=== PATIENT | male | born 1965 | race Caucasian/White ===

== ENCOUNTER 2019-04-24 13:26 | Emergency (ER) | payer MEDICARE, MEDICAID ==
[2019-04-24] MEDS ORDERED: Sodium Chloride 0.9% 10 ML Syringe FLUSH PRN (14:30)
[2019-04-24] MEDS ORDERED: Meclizine 25 MG Tab PO ONE (14:30)
[2019-04-24] MEDS ORDERED: Sodium Chloride 0.9% 1,000 ML IV SCH (14:30)
[2019-04-24] MEDS ORDERED: Ondansetron 4 MG/2 ML SDV IVPUSH ONE (14:33)
--- NOTE | 2019-04-24 14:36 | EDM.PDOC ---
ED HPI GENERAL MEDICAL PROBLEM - General Chief Complaint: Neurological Problem Stated Complaint: DIZZINESS, WEAK, NAUSEA Time Seen by Provider: 04/24/19 14:23 Source of Information: Reports: Patient, Family, RN Notes Reviewed History Limitations: Reports: No Limitations - History of Present Illness INITIAL COMMENTS - FREE TEXT/NARRATIVE: 54-year-old gentleman presents to the emergency department today complaint of dizziness, his last known well time was about 8:30 this morning, he has been dizzy for the last 6 hours he describes the dizziness more as up-and-down movement of his eyes rather than room spinning he does have difficulty ambulating and needs to hold on to something to to secure himself. Does have nausea and vomiting no shortness of breath or chest pain. Does have known history of epilepsy status post temporal lobectomy on the right side - Related Data Allergies Allergy/AdvReac Type Severity Reaction Status Date / Time hepatitis B virus vaccine Allergy Sweating Verified 04/24/19 13:59 Home Meds: Home Meds ALPRAZolam [Xanax] 0.5 mg PO TID PRN 04/24/19 [History] Albuterol Sulfate [Albuterol Sulfate Hfa] 2 puff INH Q6H PRN 04/24/19 [History] Alum Hydrox/Mag Hydrox/Simeth [Maalox Advanced] 30 ml PO ASDIRECTED 04/24/19 [ History] Aspirin [Ecotrin EC] 81 mg PO DAILY 04/24/19 [History] Calcium Carbonate/Vitamin D3 [Calcium Carbonate/Vitamin D 600 MG-200 Unit] 1 tab PO BID 04/24/19 [History] Chlorthalidone 50 mg PO DAILY 04/24/19 [History] Cholecalciferol (Vitamin D3) [Vitamin D3] 2,000 unit PO DAILY 04/24/19 [History] Cyanocobalamin (Vitamin B-12) [B-12] 1 tab PO DAILY 04/24/19 [History] DM/Pseudoephed/Acetaminophen [V-R Non-Aspirin Flu Gelcap] 1 tab PO BID PRN 04/24 [History] Divalproex Sodium [Depakote ER] 2 tab PO DAILY 04/24/19 [History] Divalproex Sodium [Depakote ER] 3 tab PO ACDINNER 04/24/19 [History] Finasteride 5 mg PO DAILY 04/24/19 [History] Fluticasone Propionate [Flonase] 1 - 2 spray INH DAILY 04/24/19 [History] Gabapentin [Neurontin] 3 tab PO TID 04/24/19 [History] Lacosamide [Vimpat] 1.5 tab PO Q12H 04/24/19 [History] Levothyroxine 300 mcg PO ACBREAKFAST 04/24/19 [History] Loperamide [Imodium] 2 tab PO TID PRN 04/24/19 [History] Magnesium Hydroxide [Milk of Magnesia] 30 ml PO ASDIRECTED 04/24/19 [History] Melatonin 10 mg PO BEDTIME 04/24/19 [History] Meloxicam 15 mg PO DAILY 04/24/19 [History] OXcarbazepine [Oxcarbazepine] 2 tab PO BID 04/24/19 [History] Potassium Chloride 20 meq PO TIDMEALS 04/24/19 [History] Propranolol [Inderal LA 24 Hr] 80 mg PO DAILY 04/24/19 [History] QUEtiapine [SEROquel] 0.5 - 1 tab PO BID PRN 04/24/19 [History] QUEtiapine [SEROquel] 25 mg PO BEDTIME 04/24/19 [History] Sertraline [Zoloft] 200 mg PO DAILY 04/24/19 [History] Sucralfate [Carafate] 1 tab PO BID 04/24/19 [History] Tamsulosin [Flomax] 2 tab PO DAILY 04/24/19 [History] Zolpidem Tartrate [Ambien] 0.5 - 1 tab PO BEDTIME PRN 04/24/19 [History] raNITIdine HCl [Zantac] 150 mg PO BID 04/24/19 [History] Past Medical History HEENT History: Reports: Hard of Hearing, Other (See Below) Other HEENT History: deveated septum Cardiovascular History: Reports: Hypertension Respiratory History: Reports: Asthma Gastrointestinal History: Reports: Chronic Diarrhea, Other (See Below) Other Gastrointestinal History: acid reflux Musculoskeletal History: Reports: Back Pain, Chronic, Osteoarthritis Neurological History: Reports: Seizure Psychiatric History: Reports: Anxiety, Dementia Endocrine/Metabolic History: Reports: Hypothyroidism - Past Surgical History Head Surgeries/Procedures: Reports: Other (See Below) HEENT Surgical History: Reports: None Cardiovascular Surgical History: Reports: None Respiratory Surgical History: Reports: None GI Surgical History: Reports: None Endocrine Surgical History: Reports: None Neurological Surgical History: Reports: None Musculoskeletal Surgical History: Reports: None Dermatological Surgical History: Reports: None Social & Family History - Family History Family Medical History: Noncontributory - Tobacco Use Smoking Status *Q: Former Smoker Years of Tobacco use: 10 Packs/Tins Daily: 3 Used Tobacco, but Quit: Yes Month/Year Tobacco Last Used: 12/2008 - Caffeine Use Caffeine Use: Reports: Coffee, Soda - Recreational Drug Use Recreational Drug Use: No ED ROS GENERAL - Review of Systems Review Of Systems: See Below Constitutional: Reports: No Symptoms HEENT: Reports: Vision Change (intermittent double vision) Respiratory: Reports: No Symptoms Cardiovascular: Reports: No Symptoms GI/Abdominal: Reports: No Symptoms : Reports: No Symptoms Musculoskeletal: Reports: No Symptoms Skin: Reports: No Symptoms Neurological: Reports: Dizziness ED EXAM, NEURO - Physical Exam Exam: See Below Text/Narrative:: General: male, not in any distress, alert and oriented x3 HEENT: head is atraumatic normocephalic, eyes pupils equal round reactive to light, sclera clear no conjunctivitis appreciated. Ears tympanic membranes clear and begum landmarks and light reflex are present bilaterally canals are clear. Nose no septal deviation, nares are clear, no blood present. Mouth mucosa is moist and pink no erythema or exudate noted in soft palate, tongue is midline uvula is midline, dentition is intact. Neck: Supple no thyromegaly no tracheal deviation. Nodes: Cervical nodes subclavicular nodes nontender no palpable lymphadenopathy noted. Lungs: clear to auscultation bilaterally with symmetrical respirations, no adventitious noise appreciated. CV: Regular rate and rhythm S1 and S2 appreciated no murmurs rubs or gallops noted. Abdomen: Soft, nontender, no palpable masses or organomegaly appreciated, no distention no guarding bowel sounds are present, [. Neuro: Cranial nerves II test with pupillary light reflex 5 mm to 3 mm bilaterally, CN III test pupillary constriction, lid elevation and eye abduction bilaterally, CN IV downward movement of eyes bilaterally, CN V good jaw movement, CN lateral deviation of the eyes bilaterally to finger movement , CN VII symmetrical smile shows teeth without difficulty, CN VIII pass finger rub to ears bilaterally, CN IX adequate voice and tone, CN X adequate voice and tone no difficulty swallowing, CN XI can shrug shoulders without difficulty, CN XII can stick tongue out without difficulty, cranial nerves II to XII intact as tested, Head impulse test: negative loss of fixation with corrective saccades when head turned to the bilateral Nystagmus: unidirectional, horizontal 4 beats of nystagmus Skew deviation: grossly absent Skin: Warm and dry, intact Extremities: No lower extremity edema appreciated, pedal pulse is +2. Course - Vital Signs Last Recorded V/S: Last Vital Signs Temp 98.6 F 04/24/19 13:51 Pulse 60 04/24/19 16:15 Resp 16 04/24/19 16:15 BP 123/79 04/24/19 16:15 Pulse Ox 96 04/24/19 16:15 - Orders/Labs/Meds Orders: Active Orders 24 hr Category Date Time Status EKG Documentation Completion [RC] ASDIRECTED Care 04/24/19 14:32 Active Peripheral IV Care [RC] . DIRECTED Care 04/24/19 14:31 Active Sodium Chloride 0.9% [Normal Saline] 1,000 ml Med 04/24/19 14:30 Active IV ASDIRECTED Sodium Chloride 0.9% [Saline Flush] Med 04/24/19 14:30 Active 10 ml FLUSH ASDIRECTED PRN Peripheral IV Insertion Adult [OM.PC] Urgent Oth 04/24/19 14:30 Ordered EKG 12 Lead [EK] Urgent Ther 04/24/19 14:30 Ordered Medication Orders Sodium Chloride (Normal Saline) 1,000 mls @ 500 mls/hr IV ASDIRECTED PENELOPE Last Admin: 04/24/19 14:51 Dose: 500 mls/hr Sodium Chloride (Saline Flush) 10 ml FLUSH ASDIRECTED PRN PRN Reason: Keep Vein Open Last Admin: 04/24/19 15:12 Dose: 10 ml Labs: Laboratory Tests 04/24/19 04/24/19 Range/Units 14:40 14:40 WBC 5.8 (4.5-11.0) K/uL RBC 4.41 (4.30-5.90) M/uL Hgb 14.3 (12.0-15.0) g/dL Hct 40.1 (40.0-54.0) % MCV 91 (80-98) fL MCH 32 H (27-31) pg MCHC 36 (32-36) % Plt Count 270 (150-400) K/uL Neut % (Auto) 59 (36-66) % Lymph % (Auto) 23 L (24-44) % [place] % (Auto) 14 H (2-6) % Eos % (Auto) 3 (2-4) % Baso % (Auto) 1 (0-1) % Sodium 123 L (140-148) mmol/L Potassium 3.9 (3.6-5.2) mmol/L Chloride 84 L (100-108) mmol/L Carbon Dioxide 31 (21-32) mmol/L Anion Gap 11.9 (5.0-14.0) mmol/L BUN 16 (7-18) mg/dL Creatinine 1.1 (0.8-1.3) mg/dL Est Cr Clr Drug Dosing 77.42 mL/min Estimated GFR (MDRD) > 60 (>60) Glucose 100 (74-106) mg/dL Calcium 9.1 (8.5-10.1) mg/dL Total Bilirubin 0.6 (0.2-1.0) mg/dL AST 15 (15-37) U/L ALT 22 (12-78) U/L Alkaline Phosphatase 57 (46-116) U/L Total Protein 7.6 (6.4-8.2) g/dL Albumin 4.2 (3.4-5.0) g/dL Globulin 3.4 (2.3-3.5) g/dL Albumin/Globulin Ratio 1.2 (1.2-2.2) Meds: Medications Generic Name Dose Route Start Last Admin Trade Name Freq PRN Reason Stop Dose Admin Sodium Chloride 1,000 mls @ 500 mls/hr 04/24/19 14:30 04/24/19 14:51 Normal Saline IV 500 mls/hr ASDIRECTED PENELOPE Administration Sodium Chloride 10 ml 04/24/19 14:30 04/24/19 15:12 Saline Flush FLUSH 10 ml ASDIRECTED PRN Administration Keep Vein Open Discontinued Medications Generic Name Dose Route Start Last Admin Trade Name Freq PRN Reason Stop Dose Admin Sodium Chloride 100 mls @ 0 mls/hr 04/24/19 14:45 04/24/19 15:09 Normal Saline IV 04/24/19 14:46 100 mls/hr ASDIRECTED PENELOPE Administration KVO Iopamidol 100 ml 04/24/19 14:45 04/24/19 15:09 Isovue-370 (76%) IV 04/24/19 14:46 100 ml . DIRECTED PENELOPE Administration Meclizine HCl 25 mg 04/24/19 14:30 04/24/19 14:55 Antivert PO 04/24/19 14:31 25 mg ONETIME ONE Administration Ondansetron HCl 4 mg 04/24/19 14:33 04/24/19 14:55 Zofran IVPUSH 04/24/19 14:34 4 mg ONETIME ONE Administration Sodium Chloride 10 ml 04/24/19 14:39 04/24/19 15:10 Saline Flush FLUSH 04/24/19 14:40 10 ml ONETIME ONE Administration Departure - Departure Time of Disposition: 18:11 Disposition: Home, Self-Care 01 Condition: Fair Clinical Impression: Dizziness - Discharge Information Referrals: Jessica Fuentes MD [Primary Care Provider] - Forms: ED Department Discharge Additional Instructions: use the meclizine as needed for dizzy symptoms, Please followup with your primary care provider in 3-5 days if not better, please call return to the emergency department with worsening of symptoms. - My Orders Last 24 Hours: My Active Orders 04/24/19 14:30 Sodium Chloride 0.9% [Normal Saline] 1,000 ml IV ASDIRECTED Sodium Chloride 0.9% [Saline Flush] 10 ml FLUSH ASDIRECTED PRN Peripheral IV Insertion Adult [OM.PC] Urgent EKG 12 Lead [EK] Urgent 04/24/19 14:31 Peripheral IV Care [RC] . DIRECTED 04/24/19 14:32 EKG Documentation Completion [RC] ASDIRECTED - Assessment/Plan Last 24 Hours: My Active Orders 04/24/19 14:30 Sodium Chloride 0.9% [Normal Saline] 1,000 ml IV ASDIRECTED Sodium Chloride 0.9% [Saline Flush] 10 ml FLUSH ASDIRECTED PRN Peripheral IV Insertion Adult [OM.PC] Urgent EKG 12 Lead [EK] Urgent 04/24/19 14:31 Peripheral IV Care [RC] . DIRECTED 04/24/19 14:32 EKG Documentation Completion [RC] ASDIRECTED Plan: Assessment Acuity = acute Site and laterality = dizzy with horizontal nystagmus complicating the patient with history of craniotomy and temporal lobectomy Etiology = unknown etiology Manifestations = nausea Location of injury = Home Lab values = this CBC CMP unremarkable except for sodium is low at 123 consistent hyponatremia. This is chronic Plan he had good relief with meclizine provided and Zofran plan is discharge home with meclizine 25 mg when necessary he will follow up with primary care and neurology if this persists This note was dictated using [employer] voice recognition software please call with any questions on syntax or grammar. F
[2019-04-24] MEDS ORDERED: Sodium Chloride 0.9% 10 ML Syringe FLUSH ONE (14:39)
[2019-04-24] MEDS ORDERED: Sodium Chloride 0.9% 100 ML IV SCH (14:45)
[2019-04-24] MEDS ORDERED: Iopamidol 755 Mg/ML 100 ML Bottle IV SCH (14:45)
--- NOTE | 2019-04-24 16:02 | CRLCT ---
INDICATION: Dizziness and nystagmus to the left. TECHNIQUE: CT of the head without contrast. Coronal and sagittal reformats are included. COMPARISON: None. FINDINGS: Postoperative changes of immature right frontoparietal craniotomy. 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 Thick extra-axial calcification along the right anterior frontal convexity and anterior falx is likely dural in location and postoperative in etiology. No acute intracranial hemorrhage or extra-axial collection. No evidence of acute cortical infarction. No mass effect or midline shift. Mild generalized cerebral/cerebellar parenchymal volume loss. Ventricles normal in size and contour given the degree of volume loss. Well corticated defect within the superior medial orbital roof with intracranial contiguity. 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 Paranasal sinuses are well aerated. Mastoid air cells are clear. No lytic or sclerotic osseous lesions within the calvarium or skull base. Scalp and other imaged soft tissue structures are normal. IMPRESSION: 1. No acute intracranial abnormalities, including no evidence of acute intracranial hemorrhage or cortical infarct. 2. Postoperative changes of mature right frontoparietal craniotomy. 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 3. Right anterior frontal and parafalcine dural calcification is favored to be postoperative in etiology. 4. 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 Please note that all CT scans at this facility use dose modulation, iterative reconstruction, and/or weight-based dosing when appropriate to reduce radiation dose to as low as reasonably achievable. Dictated by Brett Granda MD @ Apr 24 2019 3:51PM Signed by Dr. Brett Granda @ Apr 24 2019 4:02PM
--- NOTE | 2019-04-24 16:11 | CRLCT ---
INDICATION: Dizziness up nystagmus to the left. TECHNIQUE: CTA of the head with 100 cc of Isovue 370. Coronal and sagittal reformats and MIPS reconstructions are included. COMPARISON: None. FINDINGS: Suboptimal opacification the intracranial arteries. Accounting for this, no occlusion or significant stenosis of the proximal intracranial arterial vasculature. No stenosis or occlusion of the anterior or middle cerebral arteries. No stenosis or occlusion of the posterior cerebral arteries. There is a right posterior communicating artery. The left posterior communicating artery is not visible. No stenosis or occlusion of the intradural vertebral arteries and basilar artery, which are diminutive. This may be secondary to hypoplasia or suboptimal contrast bolus timing. No stenosis or occlusion of the intracranial internal carotid arteries. No aneurysm or vascular malformation. IMPRESSION: 1. Suboptimal opacification of the intracranial arteries. Accounting for this, no hemodynamically significant stenosis or occlusion is identified. No aneurysm or vascular malformation. Please note that all CT scans at this facility use dose modulation, iterative reconstruction, and/or weight-based dosing when appropriate to reduce radiation dose to as low as reasonably achievable. Dictated by Brett Granda MD @ Apr 24 2019 3:53PM Signed by Dr. Brett Granda @ Apr 24 2019 4:09PM
== END 2019-04-24 18:27 | disposition home or self-care (01) ==
LOC: JP.ED 13:26
DX: R42 Dizziness and giddiness (principal); I10 Essential (primary) hypertension; J45.909 Unspecified asthma, uncomplicated; F41.9 Anxiety disorder, unspecified; E03.9 Hypothyroidism, unspecified; K21.9 Gastro-esophageal reflux disease without esophagitis; M19.90 Unspecified osteoarthritis, unspecified site; Z87.891 Personal history of nicotine dependence; Z88.7 Allergy status to serum and vaccine; Z79.82 Long term (current) use of aspirin; Z79.899 Other long term (current) drug therapy
CPT/HCPCS: 36415; 70450; 70496; 80053; 85025; 93005; 96361; 96374; 99284; 99284-25; A9270-GY; J2405; J7030; Q9967

== ENCOUNTER 2020-12-13 09:29 | Emergency (ER) | payer MEDICARE ==
[2020-12-13] MEDS ORDERED: Ondansetron 4 MG/2 ML SDV IVPUSH ONE (10:33)
--- NOTE | 2020-12-13 10:37 | EDM.PDOC ---
ED HPI GENERAL MEDICAL PROBLEM - General Chief Complaint: General Stated Complaint: MEDICAL VIA [facility] Time Seen by Provider: 12/13/20 10:24 Source of Information: Reports: Patient, RN Notes Reviewed History Limitations: Reports: No Limitations - History of Present Illness INITIAL COMMENTS - FREE TEXT/NARRATIVE: 55-year-old gentleman presents emergency department via [facility] today complaint of weakness with dizziness and nausea and vomiting, he states the symptoms have gotten progressively worse today he has had intermittent bouts of dizziness in the past with some double vision however today it is significantly worse. He feels weak difficulty walking with the nausea and vomiting. - Related Data Allergies Allergy/AdvReac Type Severity Reaction Status Date / Time hepatitis B virus vaccine Allergy Sweating Verified 12/13/20 09:39 Home Meds: Home Meds ALPRAZolam [Xanax] 0.5 mg PO TID PRN 04/24/19 [History] Albuterol Sulfate [Albuterol Sulfate Hfa] 2 puff INH Q6H PRN 04/24/19 [History] Aspirin [Ecotrin EC] 81 mg PO DAILY 04/24/19 [History] Calcium Carbonate/Vitamin D3 [Calcium Carbonate/Vitamin D 600 MG-200 Unit] 1 tab PO BID 04/24/19 [History] Cyanocobalamin (Vitamin B-12) [B-12] 1 tab PO DAILY 04/24/19 [History] Divalproex Sodium [Depakote ER] 2 tab PO DAILY 04/24/19 [History] Divalproex Sodium [Depakote ER] 3 tab PO ACDINNER 04/24/19 [History] Finasteride 5 mg PO DAILY 04/24/19 [History] Fluticasone Propionate [Flonase] 1 - 2 spray INH DAILY 04/24/19 [History] Gabapentin [Neurontin] 3 tab PO TID 04/24/19 [History] Lacosamide [Vimpat] 1.5 tab PO Q12H 04/24/19 [History] Levothyroxine 300 mcg PO ACBREAKFAST 04/24/19 [History] Loperamide [Imodium] 2 tab PO TID PRN 04/24/19 [History] Magnesium Hydroxide [Milk of Magnesia] 30 ml PO ASDIRECTED 04/24/19 [History] Melatonin 10 mg PO BEDTIME 04/24/19 [History] OXcarbazepine [Oxcarbazepine] 2 tab PO BID 04/24/19 [History] Potassium Chloride 20 meq PO TIDMEALS 04/24/19 [History] Propranolol [Inderal LA 24 Hr] 80 mg PO DAILY 04/24/19 [History] QUEtiapine [SEROquel] 0.5 - 1 tab PO BID PRN 04/24/19 [History] QUEtiapine [SEROquel] 50 mg PO BEDTIME 04/24/19 [History] Sertraline [Zoloft] 200 mg PO DAILY 04/24/19 [History] Sucralfate [Carafate] 1 tab PO BID 04/24/19 [History] Zolpidem Tartrate [Ambien] 0.5 - 1 tab PO BEDTIME PRN 04/24/19 [History] Past Medical History HEENT History: Reports: Hard of Hearing, Other (See Below) Other HEENT History: deveated septum Cardiovascular History: Reports: Hypertension Respiratory History: Reports: Asthma Gastrointestinal History: Reports: Chronic Diarrhea, Other (See Below) Other Gastrointestinal History: acid reflux Musculoskeletal History: Reports: Back Pain, Chronic, Osteoarthritis Neurological History: Reports: Seizure Psychiatric History: Reports: Anxiety, Dementia Endocrine/Metabolic History: Reports: Hypothyroidism - Past Surgical History Head Surgeries/Procedures: Reports: Other (See Below) HEENT Surgical History: Reports: None Cardiovascular Surgical History: Reports: None Respiratory Surgical History: Reports: None GI Surgical History: Reports: None Endocrine Surgical History: Reports: None Neurological Surgical History: Reports: None Musculoskeletal Surgical History: Reports: None Dermatological Surgical History: Reports: None Social & Family History - Family History Family Medical History: No Pertinent Family History - Tobacco Use Tobacco Use Status *Q: Never Tobacco User - Caffeine Use Caffeine Use: Reports: Coffee, Soda - Recreational Drug Use Recreational Drug Use: No ED ROS GENERAL - Review of Systems Review Of Systems: See Below Constitutional: Reports: Weakness HEENT: Reports: Vertigo, Vision Change Respiratory: Reports: No Symptoms Cardiovascular: Reports: No Symptoms GI/Abdominal: Reports: Nausea ED EXAM, GENERAL - Physical Exam Exam: See Below Free Text/Narrative:: Head impulse test: Corrective saccades is positive when head turned to the bilateral Nystagmus: unidirectional, horizontal 3-beating nystagmus Skew deviation: grossly absent Exam Limited By: No Limitations General Appearance: Alert, WD/WN, No Apparent Distress Respiratory/Chest: No Respiratory Distress, Lungs Clear, Normal Breath Sounds, No Accessory Muscle Use, Chest Non-Tender Cardiovascular: Regular Rate, Rhythm, No Murmur GI/Abdominal: Soft, Non-Tender #1 Interpretation EKG Date: 12/13/20 Time: 16:39 Rhythm: NSR Rate (Beats/Min): 62 [place]: Normal P-Wave: Present QRS: Normal ST-T: Normal QT: Normal Comparison: NA - No Prior EKG Course - Vital Signs Last Recorded V/S: Last Vital Signs Temp 97.8 F 12/13/20 09:37 Pulse 58 L 12/13/20 17:38 Resp 16 12/13/20 09:37 BP 148/71 H 12/13/20 17:38 Pulse Ox 95 12/13/20 09:37 - Orders/Labs/Meds Orders: Active Orders 24 hr Category Date Time Status EKG Documentation Completion [RC] ASDIRECTED Care 12/13/20 16:19 Active Sodium Chloride 0.9% [Normal Saline] 1,000 ml Med 12/13/20 10:45 Active IV ASDIRECTED EKG 12 Lead [EK] Stat Ther 12/13/20 16:19 Ordered Medication Orders Sodium Chloride (Normal Saline) 1,000 mls @ 999 mls/hr IV ASDIRECTED PENELOPE Last Admin: 12/13/20 11:13 Dose: 500 mls/hr Documented by: MARY Labs: Laboratory Tests 12/13/20 12/13/20 12/13/20 Range/Units 10:44 10:44 16:20 WBC 6.4 (4.5-11.0) K/uL RBC 4.38 (4.30-5.90) M/uL Hgb 14.0 (12.0-15.0) g/dL Hct 40.9 (40.0-54.0) % MCV 93 (80-98) fL MCH 32 H (27-31) pg MCHC 34 (32-36) % Plt Count 220 (150-400) K/uL Neut % (Auto) 69.7 H (36-66) % Lymph % (Auto) 14.2 L (24-44) % [place] % (Auto) 10.9 H (2-6) % Eos % (Auto) 4.4 H (2-4) % Baso % (Auto) 0.8 (0-1) % Sodium 129 L (140-148) mmol/L Potassium 4.6 (3.6-5.2) mmol/L Chloride 89 L (100-108) mmol/L Carbon Dioxide 32 (21-32) mmol/L Anion Gap 12.6 (5.0-14.0) mmol/L BUN 58 H D (7-18) mg/dL Creatinine 2.3 H D (0.8-1.3) mg/dL Est Cr Clr Drug Dosing 36.59 mL/min Estimated GFR (MDRD) 29 L (>60) Glucose 122 H (74-106) mg/dL Calcium 9.2 (8.5-10.1) mg/dL Total Bilirubin 0.3 (0.2-1.0) mg/dL AST 56 H D (15-37) U/L ALT 116 H (12-78) U/L Alkaline Phosphatase 100 D (46-116) U/L Troponin I < 0.017 (0.000-0.056) ng/mL Total Protein 7.4 (6.4-8.2) g/dL Albumin 4.0 (3.4-5.0) g/dL Globulin 3.4 (2.3-3.5) g/dL Albumin/Globulin Ratio 1.2 (1.2-2.2) Meds: Medications Generic Name Dose Route Start Last Admin Trade Name Juanita PRN Reason Stop Dose Admin Sodium Chloride 1,000 mls @ 999 mls/hr 12/13/20 10:45 12/13/20 11:13 Normal Saline IV 500 mls/hr ASDIRECTED PENELOPE Administration Discontinued Medications Generic Name Dose Route Start Last Admin Trade Name Juanita PRN Reason Stop Dose Admin Aspirin 324 mg 12/13/20 16:19 12/13/20 16:31 Aspirin 81 Mg Tab.Chew PO 12/13/20 16:20 324 mg ONETIME ONE Administration Sodium Chloride 100 mls @ 4 mls/sec 12/13/20 11:15 Normal Saline IV 12/13/20 11:16 ASDIRECTED PENELOPE Iopamidol 100 ml 12/13/20 11:15 Iopamidol 755 Mg/Ml 100 Ml Bottle IV 12/13/20 11:16 . DIRECTED PENELOPE Lorazepam 0.5 mg 12/13/20 15:45 12/13/20 15:53 Lorazepam 0.5 Mg Tab PO 12/13/20 15:46 0.5 mg ONETIME ONE Administration Meclizine HCl 25 mg 12/13/20 13:12 12/13/20 13:30 Meclizine 25 Mg Tab PO 12/13/20 13:13 25 mg ONETIME ONE Administration Ondansetron HCl 4 mg 12/13/20 10:33 12/13/20 16:39 Ondansetron 4 Mg/2 Ml Sdv IVPUSH 12/13/20 10:34 Not Given ONETIME ONE Sodium Chloride 10 ml 12/13/20 11:03 Sodium Chloride 0.9% 10 Ml Syringe FLUSH 12/13/20 11:04 ONETIME PRN per radiology protocol Departure - Departure Time of Disposition: 18:24 Disposition: Home, Self-Care 01 Condition: Fair Clinical Impression: Dizziness - Discharge Information Instructions: Dizziness, [id number] Referrals: PCP,None [Ordering Only Provider] - Forms: ED Department Discharge Additional Instructions: Try the Ativan as needed for dizzy symptoms, please followup with your primary care provider in 3-5 days if not better, please call return to the emergency department with worsening of symptoms. Sepsis Event Note (ED) - Evaluation Sepsis Screening Result: No Definite Risk - Focused Exam Vital Signs: Vital Signs Temp Pulse Resp BP Pulse Ox 12/13/20 17:38 58 L 148/71 H 12/13/20 15:33 62 147/81 H 12/13/20 09:37 97.8 F 58 L 16 173/87 H 95 - My Orders Last 24 Hours: My Active Orders 12/13/20 10:45 Sodium Chloride 0.9% [Normal Saline] 1,000 ml IV ASDIRECTED 12/13/20 16:19 EKG Documentation Completion [RC] ASDIRECTED EKG 12 Lead [EK] Stat - Assessment/Plan Last 24 Hours: My Active Orders 12/13/20 10:45 Sodium Chloride 0.9% [Normal Saline] 1,000 ml IV ASDIRECTED 12/13/20 16:19 EKG Documentation Completion [RC] ASDIRECTED EKG 12 Lead [EK] Stat Plan: Assessment Acuity = acute Site and laterality = dizziness complicating gentleman who has had a craniotomy in the past Etiology = unknown Manifestations = none Location of injury = Home Lab values = CBC unremarkable sodium low at 129 consistent chronic hyponatremia creatinine elevated 2.3 consistent with chronic renal failure stage G4 troponin is negative CT scan of the head shows no acute process MRI of the brain shows no acute process Plan He had minimal improvement with meclizine but did have some good improvement with Ativan half a milligram prescription written for 1 mg p.o. 3 times daily as needed total #10 have him follow-up with his primary care in the next 3 to 5 days for reevaluation This note was dictated using [employer] voice recognition software please call with any questions on syntax or grammar.
[2020-12-13] MEDS ORDERED: Sodium Chloride 0.9% 1,000 ML IV SCH (10:45)
[2020-12-13] MEDS ORDERED: Sodium Chloride 0.9% 10 ML Syringe FLUSH PRN (11:03)
[2020-12-13] MEDS ORDERED: Iopamidol 755 Mg/ML 100 ML Bottle IV SCH (11:15)
[2020-12-13] MEDS ORDERED: Sodium Chloride 0.9% 100 ML IV SCH (11:15)
--- NOTE | 2020-12-13 11:58 | CT ---
Head wo Cont CLINICAL HISTORY: nystagmus COMPARISON: 2019 TECHNIQUE: Transverse scans were obtained from the base of the skull through the vertex without IV contrast on a multislice, multidetector CT scanner. Auto dosage reduction and iterative reconstruction techniques employed. FINDINGS: There is an area of encephalomalacia involving the right temporal lobe from previous craniotomy this is similar to prior study. No other focal abnormal density is identified. There is no mass effect, hemorrhage, or extraaxial collection. The basal cisterns and sulci over the convexities are mildly prominent. The ventricles are normal for age. IMPRESSION: Previous right craniotomy and temporal lobe resection Mild age-related atrophy No significant change from 2019
[2020-12-13] MEDS ORDERED: Meclizine 25 MG Tab PO ONE (13:12)
--- NOTE | 2020-12-13 15:30 | MR ---
Brain wo Cont CLINICAL HISTORY: Nystagmus COMPARISON: Current noncontrast CT brain TECHNIQUE: Multiple axial, sagittal, and coronal images were obtained on a 1.5 T magnet with multiweighted sequences, FLAIR, and diffusion imaging without contrast. FINDINGS: There is focal encephalomalacia involving the right temporal lobe similar to older studies. There has been previous right craniotomy. There is no hemmorhage or extraaxial collection. There is no restricted diffusion. There is some scattered T2 hyperintensity in the periventricular and subcortical white matter. The basal cisterns and sulci over the convexities are mildly prominent. The ventricles are normal for age. IMPRESSION: Previous right craniotomy and temporal lobe dissection. Mild age-related atrophy Scattered chronic ischemic microvascular changes
[2020-12-13] MEDS ORDERED: LORazepam 0.5 MG Tab PO ONE (15:45)
[2020-12-13] MEDS ORDERED: Aspirin 81 MG Tab.Chew PO ONE (16:19)
== END 2020-12-13 18:54 | disposition home or self-care (01) ==
LOC: JP.ED 09:29
DX: R42 Dizziness and giddiness (principal); I10 Essential (primary) hypertension; J45.909 Unspecified asthma, uncomplicated; F03.90 Unspecified dementia, unspecified severity, without behavioral disturbance, psychotic disturbance, mood disturbance, and anxiety; R56.9 Unspecified convulsions; E03.9 Hypothyroidism, unspecified; M19.90 Unspecified osteoarthritis, unspecified site; Z88.7 Allergy status to serum and vaccine; Z79.82 Long term (current) use of aspirin; Z79.899 Other long term (current) drug therapy
CPT/HCPCS: 36415; 70450; 70450-26; 70551; 70551-26; 80053; 84484; 85025; 93005; 99285-25; A9270-GY; J7030

== ENCOUNTER 2020-12-16 12:49 | Emergency (ER) | payer MEDICARE ==
--- NOTE | 2020-12-16 13:30 | EDM.PDOCBH ---
ED HPI GENERAL MEDICAL PROBLEM - General Chief Complaint: Neurological Problem Stated Complaint: MEDICAL VIA [facility] Time Seen by Provider: 12/16/20 12:55 Source of Information: Reports: Patient, EMS History Limitations: Reports: No Limitations - History of Present Illness INITIAL COMMENTS - FREE TEXT/NARRATIVE: 55-year-old male with numerous psychiatric illnesses and chronic anxiety has been having trouble with bladder spasms and urine retention and is scheduled for prostate surgery next month. He was in the last night in the emergency room with shakiness and weakness, apparently he fell and bumped his head and had a very thorough work-up. It was all reassuring. This morning he felt shaky again so called the ambulance. When he arrived he appeared very anxious but within 10 to 15 minutes he calm down and was back to his baseline. No fevers or chills, cough or shortness of breath, is very concerned about his upcoming surgery. Onset: Unknown/Unsure Associated Symptoms: Reports: Confusion, Weakness, Other (Significant anxiety) - Related Data Allergies Allergy/AdvReac Type Severity Reaction Status Date / Time hepatitis B virus vaccine Allergy Sweating Verified 12/15/20 19:52 Home Meds: Home Meds ALPRAZolam [Xanax] 0.5 mg PO TID PRN 04/24/19 [History] Albuterol Sulfate [Albuterol Sulfate Hfa] 2 puff INH Q6H PRN 04/24/19 [History] Aspirin [Ecotrin EC] 81 mg PO DAILY 04/24/19 [History] Calcium Carbonate/Vitamin D3 [Calcium Carbonate/Vitamin D 600 MG-200 Unit] 1 tab PO BID 04/24/19 [History] Cyanocobalamin (Vitamin B-12) [B-12] 1 tab PO DAILY 04/24/19 [History] Divalproex Sodium [Depakote ER] 2 tab PO DAILY 04/24/19 [History] Divalproex Sodium [Depakote ER] 3 tab PO ACDINNER 04/24/19 [History] Finasteride 5 mg PO DAILY 04/24/19 [History] Fluticasone Propionate [Flonase] 1 - 2 spray INH DAILY 04/24/19 [History] Gabapentin [Neurontin] 3 tab PO TID 04/24/19 [History] Lacosamide [Vimpat] 1.5 tab PO Q12H 04/24/19 [History] Levothyroxine 300 mcg PO ACBREAKFAST 04/24/19 [History] Loperamide [Imodium] 2 tab PO TID PRN 04/24/19 [History] Melatonin 10 mg PO BEDTIME 04/24/19 [History] OXcarbazepine [Oxcarbazepine] 2 tab PO BID 04/24/19 [History] Potassium Chloride 20 meq PO TIDMEALS 04/24/19 [History] Propranolol [Inderal LA 24 Hr] 80 mg PO DAILY 04/24/19 [History] QUEtiapine [SEROquel] 0.5 - 1 tab PO BID PRN 04/24/19 [History] QUEtiapine [SEROquel] 50 mg PO BEDTIME 04/24/19 [History] Sertraline [Zoloft] 200 mg PO DAILY 04/24/19 [History] Sucralfate [Carafate] 1 tab PO BID 04/24/19 [History] Zolpidem Tartrate [Ambien] 0.5 - 1 tab PO BEDTIME PRN 04/24/19 [History] Cimetidine 400 mg PO BID 12/15/20 [History] Meloxicam 15 mg PO DAILY 12/15/20 [History] Mirabegron [Myrbetriq] 25 mg PO DAILY 12/15/20 [History] Oxybutynin [Oxybutynin ER] 5 mg PO DAILY 12/15/20 [History] Rosuvastatin [Crestor] 10 mg PO DAILY 12/15/20 [History] lisinopriL [Lisinopril] 5 mg PO DAILY 12/15/20 [History] Past Medical History HEENT History: Reports: Hard of Hearing, Other (See Below) Other HEENT History: deveated septum Cardiovascular History: Reports: Hypertension Respiratory History: Reports: Asthma Gastrointestinal History: Reports: Chronic Diarrhea, Other (See Below) Other Gastrointestinal History: acid reflux Musculoskeletal History: Reports: Back Pain, Chronic, Osteoarthritis Neurological History: Reports: Seizure Psychiatric History: Reports: Anxiety, Dementia Endocrine/Metabolic History: Reports: Hypothyroidism - Past Surgical History HEENT Surgical History: Reports: None Cardiovascular Surgical History: Reports: None Respiratory Surgical History: Reports: None GI Surgical History: Reports: None Endocrine Surgical History: Reports: None Neurological Surgical History: Reports: None Musculoskeletal Surgical History: Reports: None Social & Family History - Family History Family Medical History: No Pertinent Family History - Caffeine Use Caffeine Use: Reports: None ED ROS GENERAL - Review of Systems Review Of Systems: See Below Constitutional: Denies: Fever, Chills HEENT: Reports: No Symptoms Respiratory: Denies: Shortness of Breath Cardiovascular: Reports: Palpitations. Denies: Chest Pain GI/Abdominal: Denies: Abdominal Pain, Nausea, Vomiting : Reports: Urgency, Urinary Retention Skin: Reports: No Symptoms Neurological: Reports: Dizziness, Weakness Psychiatric: Reports: Anxiety ED EXAM, BEHAVIORAL HEALTH - Physical Exam Exam: See Below Exam Limited By: No Limitations General Appearance: Alert, Anxious Eye Exam: Bilateral Eye: Normal Inspection Head: Atraumatic Respiratory/Chest: No Respiratory Distress, Lungs Clear Cardiovascular: Regular Rate, Rhythm GI/Abdominal: Soft, Other (No significant tenderness or bladder distention of the lower abdomen) Neurological: Alert, Oriented x 3 Psychiatric: Other (Patient arrives extremely anxious) COURSE, BEHAVIORAL HEALTH COMP - Course Orders, Labs, Meds: Medications Discontinued Medications Generic Name Dose Route Start Last Admin Trade Name Juanita PRN Reason Stop Dose Admin Lorazepam 1 mg 12/16/20 15:26 12/16/20 15:30 Lorazepam 1 Mg Tab PO 12/16/20 15:27 1 mg ONETIME ONE Administration Re-Assessment/Re-Exam: A bladder scan was obtained which showed 440 cc of urine. I reviewed his work-u p from last night and it was extensive and reassuring, it does not need repeating. This appears to be anxiety breakthrough regarding his symptoms and upcoming procedure. After a bladder scan revealed 440 cc of urine, I asked him to try to relieve his urine without assistance with a catheter. Patient empty just over 200 cc of use urine, and remained comfortable. He was fairly shaky when standing but I have no reason to hospitalize him. He was reassured and should continue his regular medications and anticipate his procedure when scheduled. Departure - Departure Time of Disposition: 15:48 Disposition: Home, Self-Care 01 Clinical Impression: Anxiety about health, Dizziness, Weakness generalized - Discharge Information Instructions: Weakness, [id number] Referrals: PCP,None [Primary Care Provider] - Forms: ED Department Discharge Care Plan Goals: Continue your current medications, activity as tolerated and recheck as scheduled with your primary providers. Return to the emergency room if worsening or concerns.
[2020-12-16] MEDS ORDERED: LORazepam 1 MG Tab PO ONE (15:26)
== END 2020-12-16 15:48 | disposition home or self-care (01) ==
LOC: JP.ED 12:49
DX: F41.9 Anxiety disorder, unspecified (principal); R42 Dizziness and giddiness; R53.1 Weakness; I10 Essential (primary) hypertension; E03.9 Hypothyroidism, unspecified; Z79.82 Long term (current) use of aspirin; Z79.899 Other long term (current) drug therapy; Z88.7 Allergy status to serum and vaccine
CPT/HCPCS: 99285; A9270

== ENCOUNTER 2021-01-03 14:33 | Emergency (ER) | payer MEDICARE ==
--- NOTE | 2021-01-03 19:29 | EDM.PDOC ---
ED HPI GENERAL MEDICAL PROBLEM - General Chief Complaint: General Stated Complaint: DIZZY, LIGHT HEADED Time Seen by Provider: 01/03/21 18:59 Source of Information: Reports: Patient History Limitations: Reports: No Limitations - History of Present Illness INITIAL COMMENTS - FREE TEXT/NARRATIVE: 55 yo male presents with dizziness via EMS. He has PMH of TBI. This dizziness is not new for him. He was very evaluated for like symptoms 12/15 in [facility] ER with no abnormal findings. He does have prostrate surgery soon but does not know when that will be scheduled. generally feeling well. denies N/D/V. He does have appt for eye evaluation tomorrow. Left Lower Buttock Pain Score (Numeric/FACES): 5 - Related Data Allergies Allergy/AdvReac Type Severity Reaction Status Date / Time hepatitis B virus vaccine Allergy Sweating Verified 01/03/21 18:56 Home Meds: Home Meds ALPRAZolam [Xanax] 0.5 mg PO TID PRN 04/24/19 [History] Albuterol Sulfate [Albuterol Sulfate Hfa] 2 puff INH Q6H PRN 04/24/19 [History] Aspirin [Ecotrin EC] 81 mg PO DAILY 04/24/19 [History] Calcium Carbonate/Vitamin D3 [Calcium Carbonate/Vitamin D 600 MG-200 Unit] 1 tab PO BID 04/24/19 [History] Cyanocobalamin (Vitamin B-12) [B-12] 1 tab PO DAILY 04/24/19 [History] Divalproex Sodium [Depakote ER] 2 tab PO DAILY 04/24/19 [History] Divalproex Sodium [Depakote ER] 3 tab PO ACDINNER 04/24/19 [History] Finasteride 5 mg PO DAILY 04/24/19 [History] Fluticasone Propionate [Flonase] 1 - 2 spray INH DAILY 04/24/19 [History] Gabapentin [Neurontin] 3 tab PO TID 04/24/19 [History] Lacosamide [Vimpat] 1.5 tab PO Q12H 04/24/19 [History] Levothyroxine 300 mcg PO ACBREAKFAST 04/24/19 [History] Loperamide [Imodium] 2 tab PO TID PRN 04/24/19 [History] Melatonin 10 mg PO BEDTIME 04/24/19 [History] OXcarbazepine [Oxcarbazepine] 2 tab PO BID 04/24/19 [History] Potassium Chloride 20 meq PO TIDMEALS 04/24/19 [History] Propranolol [Inderal LA 24 Hr] 80 mg PO DAILY 04/24/19 [History] QUEtiapine [SEROquel] 0.5 - 1 tab PO BID PRN 04/24/19 [History] QUEtiapine [SEROquel] 50 mg PO BEDTIME 04/24/19 [History] Sertraline [Zoloft] 200 mg PO DAILY 04/24/19 [History] Sucralfate [Carafate] 1 tab PO BID 04/24/19 [History] Zolpidem Tartrate [Ambien] 0.5 - 1 tab PO BEDTIME PRN 04/24/19 [History] Cimetidine 400 mg PO BID 12/15/20 [History] Meloxicam 15 mg PO DAILY 12/15/20 [History] Mirabegron [Myrbetriq] 25 mg PO DAILY 12/15/20 [History] Oxybutynin [Oxybutynin ER] 5 mg PO DAILY 12/15/20 [History] Rosuvastatin [Crestor] 10 mg PO DAILY 12/15/20 [History] lisinopriL [Lisinopril] 5 mg PO DAILY 12/15/20 [History] Past Medical History HEENT History: Reports: Hard of Hearing, Other (See Below) Other HEENT History: deveated septum Cardiovascular History: Reports: Hypertension Respiratory History: Reports: Asthma Gastrointestinal History: Reports: Chronic Diarrhea, Other (See Below) Other Gastrointestinal History: acid reflux Musculoskeletal History: Reports: Back Pain, Chronic, Osteoarthritis Neurological History: Reports: Seizure Psychiatric History: Reports: Anxiety, Dementia Endocrine/Metabolic History: Reports: Hypothyroidism - Infectious Disease History Infectious Disease History: Reports: Chicken Pox - Past Surgical History Head Surgeries/Procedures: Reports: Other (See Below) HEENT Surgical History: Reports: None Cardiovascular Surgical History: Reports: None Respiratory Surgical History: Reports: None GI Surgical History: Reports: None Endocrine Surgical History: Reports: None Neurological Surgical History: Reports: None Musculoskeletal Surgical History: Reports: None Dermatological Surgical History: Reports: None Social & Family History - Family History Family Medical History: No Pertinent Family History - Tobacco Use Tobacco Use Status *Q: Former Tobacco User Years of Tobacco use: 10 Used Tobacco, but Quit: Yes Month/Year Tobacco Last Used: 07/1983 - Caffeine Use Caffeine Use: Reports: Coffee, Soda Caffeine Use Comment: "lots of coffee and soda" - Recreational Drug Use Recreational Drug Use: No ED ROS GENERAL - Review of Systems Review Of Systems: See Below Constitutional: Denies: Fever, Chills, Fatigue HEENT: Denies: Rhinitis, Throat Pain Respiratory: Denies: Shortness of Breath, Wheezing Cardiovascular: Denies: Chest Pain, Blood Pressure Problem GI/Abdominal: Denies: Abdominal Pain, Nausea, Vomiting Neurological: Reports: Dizziness. Denies: Headache ED EXAM, GENERAL - Physical Exam Exam: See Below Exam Limited By: No Limitations General Appearance: Alert, WD/WN, No Apparent Distress Head: Atraumatic, Normocephalic, Other (healing bruise lateral right eye) Neck: Normal Inspection, Supple, Non-Tender. No: Lymphadenopathy (R), Lymphadenopathy (L) Respiratory/Chest: No Respiratory Distress, Lungs Clear, Normal Breath Sounds. No: Crackles, Rhonchi, Wheezing Cardiovascular: Regular Rate, Rhythm, No Murmur GI/Abdominal: Soft, Non-Tender Neurological: Alert, Oriented, CN II-XII Intact, Normal Cognition Psychiatric: Normal Affect, Normal Mood Skin Exam: Warm, Dry, Intact Course - Vital Signs Last Recorded V/S: Last Vital Signs Temp 36.3 C 01/03/21 19:25 Pulse 62 01/03/21 19:25 Resp 20 01/03/21 19:25 BP 130/67 01/03/21 19:25 Pulse Ox 96 01/03/21 19:25 - Orders/Labs/Meds Labs: Laboratory Tests 01/03/21 Range/Units 19:25 Urine Color Yellow (YELLOW) Urine Appearance Clear (CLEAR) Urine pH 5.5 (5.0-8.0) Ur Specific [place] 1.025 (1.008-1.030) Urine Protein 30 H (NEGATIVE) mg/dL Urine Glucose (UA) 100 H (NEGATIVE) mg/dL Urine Ketones Trace H (NEGATIVE) mg/dL Urine Occult Blood Negative (NEGATIVE) Urine Nitrite Negative (NEGATIVE) Urine Bilirubin Negative (NEGATIVE) Urine Urobilinogen 0.2 (0.2-1.0) EU/dL Ur Leukocyte Esterase Negative (NEGATIVE) Urine RBC 0-5 (0-5) Urine WBC 0-5 (0-5) Ur Epithelial Cells Rare Amorphous Sediment Occasional Urine Bacteria Rare Urine Mucus Occasional - Re-Assessments/Exams Free Text/Narrative Re-Assessment/Exam: 01/03/21 20:29 UA positive for glucose a few weeks ago blood glucose was 122. encouraged pt to follow-up with primary care provider. pt has eye appt tomorrow. pt had head CT on 12/15 that was negative. He has not fallen since this CT but he is a chronic fall risk. 01/03/21 20:30 01/03/21 20:34 Departure - Departure Time of Disposition: 20:35 Disposition: Home, Self-Care 01 Condition: Good Clinical Impression: Dizziness, Weakness generalized - Discharge Information *PRESCRIPTION DRUG MONITORING PROGRAM REVIEWED*: Not Applicable *COPY OF PRESCRIPTION DRUG MONITORING REPORT IN PATIENT PIYUSH: Not Applicable Instructions: Dizziness, [id number] Referrals: Adan Lawrence MD [Primary Care Provider] - Forms: ED Department Discharge Additional Instructions: follow-up with your primary care for glucose in your urine drink 64 ounces of fluid per day be sure to tell your eye doctor about the dizziness Sepsis Event Note (ED) - Evaluation Sepsis Screening Result: No Definite Risk - Focused Exam Vital Signs: Vital Signs Temp Pulse Resp BP Pulse Ox 01/03/21 19:25 36.3 C 62 20 130/67 96 01/03/21 19:02 16 99
== END 2021-01-03 20:51 | disposition home or self-care (01) ==
LOC: JP.ED 14:33
DX: R42 Dizziness and giddiness (principal); R53.1 Weakness; I10 Essential (primary) hypertension; J45.909 Unspecified asthma, uncomplicated; K21.9 Gastro-esophageal reflux disease without esophagitis; F03.90 Unspecified dementia, unspecified severity, without behavioral disturbance, psychotic disturbance, mood disturbance, and anxiety; E03.9 Hypothyroidism, unspecified; M19.90 Unspecified osteoarthritis, unspecified site; R56.9 Unspecified convulsions; Z88.7 Allergy status to serum and vaccine; Z79.82 Long term (current) use of aspirin; Z79.899 Other long term (current) drug therapy
CPT/HCPCS: 81001; 99283; 99284

== ENCOUNTER 2022-01-06 10:23 | Emergency (ER) | payer MEDICARE ==
[2022-01-06] MEDS ORDERED: LORazepam 1 MG Tab PO ONE (11:18)
[2022-01-06] MEDS ORDERED: Sodium Chloride 0.9% 100 ML IV SCH (11:45)
[2022-01-06] MEDS ORDERED: Iopamidol 755 Mg/ML 100 ML Bottle IV SCH (11:45)
== END 2022-01-06 14:17 | disposition home or self-care (01) ==
LOC: JP.ED 10:23
DX: R42 Dizziness and giddiness (principal); I10 Essential (primary) hypertension; E03.9 Hypothyroidism, unspecified; J45.909 Unspecified asthma, uncomplicated; Z88.7 Allergy status to serum and vaccine; Z87.891 Personal history of nicotine dependence
CPT/HCPCS: 36415; 70450; 70496; 80048; 85025; 99285; A9270; J3490; Q9967; 99282

== ENCOUNTER 2022-09-19 08:21 | Day surgery (SDC) | payer MEDICARE, MEDICAID ==
[2022-09-19] MEDS ORDERED: Midazolam 1 MG/ML 2 ML SDV ONE (09:13)
[2022-09-19] MEDS ORDERED: Propofol 200 MG/20 ML SDV ONE ×2 (09:13→10:38)
[2022-09-19] MEDS ORDERED: fentaNYL 50 MCG/ML SDV ONE (09:13)
[2022-09-19] MEDS ORDERED: Lactated Ringers 1,000 ML IV SCH (09:30)
== END 2022-09-19 12:21 | disposition home or self-care (01) ==
LOC: JP.SDS 08:21
PROVIDERS: ATTEND Family Medicine
DX: Z12.11 Encounter for screening for malignant neoplasm of colon (principal); D12.2 Benign neoplasm of ascending colon; D12.4 Benign neoplasm of descending colon; D12.5 Benign neoplasm of sigmoid colon; D12.8 Benign neoplasm of rectum; G47.33 Obstructive sleep apnea (adult) (pediatric); I10 Essential (primary) hypertension; E66.9 Obesity, unspecified; Z86.010 Personal history of colon polyps
CPT/HCPCS: 88305; J2250; J2704; J3010; J7120

== ENCOUNTER 2024-07-01 09:22 | Emergency (ER) | payer MEDICARE, MEDICAID | END 2024-07-01 12:25 | disposition home or self-care (01) | LOC: JP.ED 09:22 | DX: H53.2 Diplopia (principal); I10 Essential (primary) hypertension; J45.909 Unspecified asthma, uncomplicated; E03.9 Hypothyroidism, unspecified; E66.9 Obesity, unspecified; Z88.7 Allergy status to serum and vaccine; Z91.048 Other nonmedicinal substance allergy status; Z79.51 Long term (current) use of inhaled steroids; Z79.890 Hormone replacement therapy; Z79.899 Other long term (current) drug therapy; Z68.41 Body mass index [BMI] 40.0-44.9, adult | CPT/HCPCS: 70450; 99284 ==

== ENCOUNTER 2025-02-23 09:37 | Emergency (ER) | payer MEDICARE, MEDICAID ==
[2025-02-23 09:58] LABS: BASOPHILS ABSOLUTE AUTO 0.06 K/uL (0.00-0.10); BASOPHILS PERCENT AUTO 1.5 % (0.1-1.3); EOSINOPHILS ABSOLUTE AUTO 0.28 K/uL (0.00-0.40); EOSINOPHILS PERCENT AUTO 6.9 % (0.0-5.4); IMMATURE GRAN PERCENT AUTO 0.5 % (0.0-0.7); LYMPHOCYTES ABSOLUTE AUTO 1.38 K/uL (0.8-3.3); LYMPHOCYTES PERCENT AUTO 34.0 % (11.4-47.7); MONOCYTES ABSOLUTE AUTO 0.58 K/uL (0.20-0.90); MONOCYTES PERCENT AUTO 14.3 % (3.3-12.6); NEUTROPHILS ABSOLUTE AUTO 1.74 K/uL (1.0-7.6); NEUTROPHILS PERCENT AUTO 42.8 % (40.0-78.1); PLATELET COUNT,PLT 114 K/uL (130-375); RED BLOOD CELL COUNT 4.43 M/uL (4.14-5.76); WHITE BLOOD CELL COUNT,WBC 4.1 K/uL (3.2-11.0)
[2025-02-23 09:59] LABS: IMMATURE GRAN ABSOLUTE AUTO 0.02 K/uL (0.00-0.23)
[2025-02-23 10:17] LABS: A/G RATIO 1.1 (1.2-2.2); ALANINE AMINOTRANSFERASE,ALT 18 U/L (12-78); ASPARTATE AMNIOTRANSFERASE,AST 13 U/L (15-37); BILIRUBIN TOTAL 0.5 mg/dL (0.2-1.0); BLOOD UREA NITROGEN,BUN 12 mg/dL (7-18); CARBON DIOXIDE,CO2 31 mmol/L (21-32); CHLORIDE,CL 91 mmol/L (100-108); CREATININE 1.1 mg/dL (0.8-1.3); EST CRCL DRUG DOSING (CG) 72.82 mL/min; ESTIMATED GFR 76 mL/min (>60); GLUCOSE RANDOM 93 mg/dL (74-106); POTASSIUM,K 3.5 mmol/L (3.6-5.2); PROTEIN TOTAL,TP 6.7 g/dL (6.4-8.2); SODIUM,NA 129 mmol/L (140-148)
[2025-02-23] MEDS: Lactated Ringers 1,000 ML IV SCH (11:29)
[2025-02-23] MEDS: Tetracaine HCl/PF 0.5% 4 ML Bottle EYEBOTH ONE (11:48)
== END 2025-02-23 12:56 | disposition home or self-care (01) ==
LOC: JP.ED 09:37
DX: H53.2 Diplopia (principal); I10 Essential (primary) hypertension; E03.9 Hypothyroidism, unspecified; E66.9 Obesity, unspecified; J45.909 Unspecified asthma, uncomplicated; M19.90 Unspecified osteoarthritis, unspecified site; Z79.899 Other long term (current) drug therapy; Z88.8 Allergy status to other drugs, medicaments and biological substances; Z91.048 Other nonmedicinal substance allergy status; Z79.51 Long term (current) use of inhaled steroids; Z79.890 Hormone replacement therapy; Z87.891 Personal history of nicotine dependence; Z68.39 Body mass index [BMI] 39.0-39.9, adult
CPT/HCPCS: 36415; 70450; 80053; 80164; 85025; 99284; J7120

== ENCOUNTER 2025-03-08 08:32 | Emergency (ER) | payer MEDICARE, MEDICAID ==
[2025-03-08 09:22] LABS: BASOPHILS ABSOLUTE AUTO 0.12 K/uL (0.00-0.10); BASOPHILS PERCENT AUTO 2.5 % (0.1-1.3); EOSINOPHILS ABSOLUTE AUTO 0.40 K/uL (0.00-0.40); EOSINOPHILS PERCENT AUTO 8.4 % (0.0-5.4); IMMATURE GRAN ABSOLUTE AUTO 0.03 K/uL (0.00-0.23); IMMATURE GRAN PERCENT AUTO 0.6 % (0.0-0.7); LYMPHOCYTES ABSOLUTE AUTO 1.61 K/uL (0.8-3.3); LYMPHOCYTES PERCENT AUTO 34.0 % (11.4-47.7); MONOCYTES ABSOLUTE AUTO 0.56 K/uL (0.20-0.90); MONOCYTES PERCENT AUTO 11.8 % (3.3-12.6); NEUTROPHILS ABSOLUTE AUTO 2.02 K/uL (1.0-7.6); NEUTROPHILS PERCENT AUTO 42.7 % (40.0-78.1); PLATELET COUNT,PLT 161 K/uL (130-375); RED BLOOD CELL COUNT 4.60 M/uL (4.14-5.76); WHITE BLOOD CELL COUNT,WBC 4.7 K/uL (3.2-11.0)
[2025-03-08 09:49] LABS: TROPONIN I HIGH SENSITIVITY 10.5 pg/mL (<=60.3)
[2025-03-08 09:51] LABS: A/G RATIO 1.1 (1.2-2.2); ALANINE AMINOTRANSFERASE,ALT 27 U/L (12-78); ASPARTATE AMNIOTRANSFERASE,AST 17 U/L (15-37); BILIRUBIN TOTAL 0.6 mg/dL (0.2-1.0); BLOOD UREA NITROGEN,BUN 28 mg/dL (7-18); CARBON DIOXIDE,CO2 30 mmol/L (21-32); CHLORIDE,CL 96 mmol/L (100-108); CREATININE 1.0 mg/dL (0.8-1.3); EST CRCL DRUG DOSING (CG) 77.57 mL/min; ESTIMATED GFR 86 mL/min (>60); GLUCOSE RANDOM 100 mg/dL (74-106); POTASSIUM,K 4.1 mmol/L (3.6-5.2); PROTEIN TOTAL,TP 7.1 g/dL (6.4-8.2); SODIUM,NA 133 mmol/L (140-148); TSH ULTRASENSITIVE 3.037 uIU/mL (0.358-3.740)
[2025-03-08 10:13] LABS: APPEARANCE,URINE CLEAR (CLEAR); GLUCOSE,URINE NEGATIVE (NEGATIVE); OCCULT BLOOD,URINE NEGATIVE (NEGATIVE)
[2025-03-08 10:28] LABS: SQUAMOUS EPITHELIAL CELLS,UR NOT SEEN /HPF
[2025-03-08 10:33] LABS: AMPHETAMINES SCREEN, URINE NEGATIVE (NEGATIVE); METHADONE SCREEN, URINE NEGATIVE (NEGATIVE); METHAMPHETAMINES SCREEN, URINE NEGATIVE (NEGATIVE); OXYCODONE SCREEN,URINE NEGATIVE (NEGATIVE); PROPOXYPHENE SCREEN,URINE NEGATIVE (NEGATIVE); THC SCREEN,URINE 50 NG/ML NEGATIVE (NEGATIVE)
== END 2025-03-08 11:30 | disposition home or self-care (01) ==
LOC: JP.ED 08:32
DX: R42 Dizziness and giddiness (principal); H53.2 Diplopia; F41.9 Anxiety disorder, unspecified; I10 Essential (primary) hypertension; E03.9 Hypothyroidism, unspecified; E66.9 Obesity, unspecified; R45.89 Other symptoms and signs involving emotional state; K21.9 Gastro-esophageal reflux disease without esophagitis; Z91.048 Other nonmedicinal substance allergy status; Z88.7 Allergy status to serum and vaccine; Z88.8 Allergy status to other drugs, medicaments and biological substances; Z79.899 Other long term (current) drug therapy; Z79.82 Long term (current) use of aspirin; Z68.41 Body mass index [BMI] 40.0-44.9, adult
CPT/HCPCS: 36415; 70450; 80053; 80305-QW; 80307; 81001; 83605; 83735; 84443; 84484; 85025; 93005; 93010; 99284; 99285